=== PATIENT | female | born 1970 | race Caucasian/White ===

== ENCOUNTER → 2019-05-08 | Outpatient (CLI) | payer MEDICAID, SELFPAY ==
[2019-05-08 09:42] VITALS: BMI 32.9
--- NOTE | 2019-05-08 09:59 | RAD_ITS ---
STUDY: X-RAY - LEFT KNEE REASON FOR EXAM: Female, 49 years old. Knee pain TECHNIQUE: 4 view(s) of the knee. COMPARISON: None. FINDINGS: Normal visualized distal femur. Normal visualized proximal tibia and fibula. Normal proximal tibiofibular articulation. Normal medial femorotibial compartment. Normal lateral femorotibial compartment. Normal patellofemoral articulation. The soft tissue structures are unremarkable. RAD/Knee 4 or More Views IMPRESSION: Normal x-ray examination of the knee. Electronically Signed: Maco Mccloud MD at 15:37 EDT Tel , Service support ,
--- NOTE | 2019-05-08 09:59 | RAD_ITS ---
STUDY: X-RAY - RIGHT KNEE REASON FOR EXAM: Female, 49 years old. TECHNIQUE: 4 view(s) of the knee. COMPARISON: None. FINDINGS: [Studies of the right knee shows no evidence of fracture, dislocation, or bony destruction. There is narrowing of the patellofemoral articulation on the right particularly involving the lateral right knee cap consistent with severe degenerative arthritis RAD/Knee 4 or More Views IMPRESSION: [Severe degenerative arthritis of the right knee Electronically Signed: Ruben Salvador, at 14:38 EDT Tel , Service support ,
== END | disposition home or self-care (01) ==
LOC: HPRAD 09:58
PROVIDERS: Referring Provider Orthopaedic Surgery; Visit Provider Orthopaedic Surgery
DX: M25.561 Pain in right knee (principal); M25.562 Pain in left knee
CPT/HCPCS: 73564

== ENCOUNTER 2019-08-14 16:33 | Emergency (ER) | payer MEDICAID, SELFPAY ==
[2019-05-08 09:42] VITALS: BMI 32.9
[2019-08-14 16:35] VITALS: BP 159/101; PULSE 80; RESP 16; TEMP 36.5; O2SAT 99; BMI 32.7
--- NOTE | 2019-08-14 17:33 | ED.DCSUM_ITS ---
History of Present Illness Chief Complaint: Abd Pain Informant: Patient Onset: Weeks - 2 Context: Gradual Onset Timing: Continuous Narrative: Patient is a 49-year-old female presenting for continued abdominal pain. Debo ent states she has had abdominal pain in her left upper quadrant as well as her left mid back for the past 2 weeks. She states it is constant. She states it is sharp and feels like she is being stabbed or punched. Patient notes that about 2 weeks ago she had a colonoscopy where she was diagnosed with diverticulitis. She was started on antibiotics at that time. A week ago she went to [facility] for continued pain. She had a CT and was diagnosed with colitis. She started on Augmentin which she finished today. She is also given Belding for pain control. Patient states the pain is persisted. In the interim she also developed shingles in the same area. Patient was put on an antiviral for this. Patient finished all her medications today so she went back to the ER at [facility]. She was told there was nothing more to do for her so patient left. Patient did not have any further lab work evaluation. Patient then came to our emergency room for further evaluation. Patient has associated sweats but no fever. She has chronic diarrhea which is unchanged. She denies any black or blood in her stool. She does have associated nausea but she thinks it is secondary to her pain. She denies any vomiting. Patient's been taking Tylenol as well at home. 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 She also has a history of diabetes and hypertension. Patient was incidentally found to have a nonobstructing 8 mm stone in her right kidney. Past Medical History - Allergies and Home Meds Allergies/Adverse Reactions: Allergies No Known Allergies Allergy (Verified 08/14/19 16:34) Primary Care Physician: Opal Rader MD [Primary Care Provider] - Past Medical History: - - Hypertension, history of DVT in arm, diabetes mellitus Surgical History: no surgical history Smoking Status: Current every day smoker Review of Systems General: Denies: Chills, Fever, Sweats Eyes: Denies: Visual changes - bilaterally, Diplopia ENT: Denies: Rhinorrhea, Sore throat Cardiovascular: Denies: Chest pain, Palpitations Respiratory: Denies: Dyspnea, Cough, Dyspnea on exertion Gastrointestinal: Reports: Abdominal pain. Denies: Nausea, Vomiting, Diarrhea, Melena, Hematochezia Genitourinary: Denies: Dysuria, Hematuria, Frequency Musculoskeletal: Reports: Back pain. Denies: Extremity Pain Skin: Reports: Rash - left upper abdoemn and back . Denies: Wounds Neurological: Denies: Headache, Weakness, Numbness Physical Exam Vital Signs/Narrative: Vital Signs Temp Pulse Resp BP Pulse Ox 08/14/19 16:35 97.7 F L 80 16 159/101 H 99 Inital Vital Signs reviewed: Yes General: Well nourished, Well developed, No Acute Distress Head: Normocephalic, Atraumatic Eyes: Perrl, EOMI ENT: Moist mucous membranes, No rhinorrhea Neck: Supple, Nontender Cardiovascular: Regular rate, Regular rhythm, No murmurs Respiratory: No distress, CTA bilaterally, Chest nontender Abdomen: Soft, Nontender, Nondistended, Normal bowel sounds. Negative for: Guarding, Rebound tenderness, Mass Back: Nontender, Normal Inspection. Negative for: CVA tenderness, Spinal tenderness Extremities: Nontender, No edema Skin: Normal color, - - Scattered vesicular rash wrapping around the patient's left upper abdomen and back at approximately the level of T10, this coincides with patient's pain is Neurological: Alert, Oriented x3, Cranial nerves II-XII grossly intact, Normal Strength, Normal Sensation Psychological: Normal affect, Normal Mood Diagnostic/Tx/Re-eval Laboratory Data 08/14/19 08/14/19 08/14/19 17:00 17:00 18:05 WBC 6.7 RBC 4.69 Hgb 13.9 Hct 39.8 MCV 84.9 MCH 29.6 MCHC 34.9 RDW Std Deviation 40.6 RDW Coeff of Patito 13.3 Plt Count 208 MPV 10.5 Immature Gran % (Auto) 0.400 Neut % (Auto) 55.5 Lymph % (Auto) 36.7 [place] % (Auto) 5.5 Eos % (Auto) 1.3 Baso % (Auto) 0.6 Absolute Neuts (auto) 3.7 Absolute Lymphs (auto) 2.45 Nucleated RBC % 0 Sodium 138 Potassium 3.5 Chloride 107 Carbon Dioxide 25.0 Anion Gap 6 BUN 11 Creatinine 0.80 Estim Creat Clear Calc 65.80 Est GFR (MDRD) Af Amer 97 Est GFR (MDRD) Non-Af 80 BUN/Creatinine Ratio 13.7 Glucose 185 H Calcium 9.0 Total Bilirubin 0.20 AST 9 L ALT 19 Alkaline Phosphatase 64 Total Protein 7.8 Albumin 3.8 Globulin 4.0 Albumin/Globulin Ratio 1.0 Lipase 155 Urine Color Yellow Urine Clarity Sl. Cloudy Urine pH 6.0 Ur Specific [place] 1.020 Urine Protein Negative Urine Glucose (UA) Normal Urine Ketones 5 H Urine Occult Blood 10 H Urine Nitrite Negative Urine Bilirubin Negative Urine Urobilinogen 1 H Ur Leukocyte Esterase 25 H Urine RBC 0-5 SEEN Urine WBC 0-5 SEEN Ur Squamous Epith Cells 0-5 SEEN Urine Bacteria 0 SEEN Urine Mucus 0 SEEN - Medical Decision Making Patient is evaluated for 2 weeks of constant abdominal and back pain. Patient had a CT of her abdomen and pelvis 10 days ago which is reviewed which showed fatty liver, nonobstructing right renal calculus and underfilling versus inflammatory change of the sigmoid colon as well as nonspecific mesenteric adenitis. Patient has completed a course of antibiotics for the questionable colitis. Patient is overall well-appearing. She has been eating and drinking. Her vital signs are normal. Her pain is likely from her shingles and possible postherpetic neuralgia. Patient is given morphine and Lidoderm as well as IV fluids while in the emergency room. On reevaluation she is feeling much better. Patient cannot have NSAIDs because she is on anticoagulation. She is told to use [id number] Lidoderm patches and is also started on gabapentin for pain. She will continue taking her antivirals. At this time I do not think re peat abdominal imaging is indicated given her physical exam, laboratory findings and vital signs. She is agreeable with this. Patient is counseled on signs and symptoms requiring return to the emergency room. Patient verbalizes agreement and understand this plan. Patient discharged home in stable and improved condition. ED Disposition - Plan for ED Patient: Disposition: Home or Assisted Living Diagnosis: Shingles outbreak, Abdominal pain Instructions: Shingles (Herpes Zoster) Prescriptions: Gabapentin [Neurontin] 100 mg PO TIDCM 7 Days #21 cap Transmission Status: Received by [id number] Referrals: Opal Rader MD [Primary Care Provider] - Additional Instructions: Your lab work was normal today. I suspect your pain is actually from your shingles. Use [id number] 4% Lidoderm patches topically. Continue take Tylenol. You have also been prescribed a nerve pill to help with your pain. Please follow-up with your primary care doctor or the doctor covering for her later this week for reevaluation.
[2019-08-14 17:51] LABS: Absolute Lymphocyte Count 2.45 X10^3/uL (0.83-4.51); Absolute Neutrophil Count 3.7 X10^3/uL (2.0-7.7); Basophil# 0.04 X10^3/uL; Basophil% 0.6 % (0-1); Eosinophil# 0.09 X10^3/uL; Eosinophils% 1.3 % (0-5); Hematocrit 39.8 % (37-47); Hemoglobin 13.9 g/dL (12.0-15.0); Lymphocyte # 2.45 X10^3/ul (4.0); Lymphocyte % 36.7 % (19-41); Mean Corp Hgb Conc 34.9 g/dL (32-36); Mean Corpuscular Hgb 29.6 pg (27.0-32.0); Mean Corpuscular Volume 84.9 fL (81-99); Mean Platelet Vol. 10.5 fl (6.2-12.0); Monocyte# 0.37 X10^3/uL; Monocyte% 5.5 % (0-10); NRBC Flagged by Analyzer 0 % (0-5); Neutrophil # 3.69 X10^3/uL (2.7-7.7); Neutrophil % 55.5 % (47-70); Platelet Count 208 K/mm3 (150-450); RBC Distribution Width CV 13.3 % (11.6-14.6); RBC Distribution Width SD 40.6 fl (35.1-43.9); Red Blood Count 4.69 M/mm3 (4.2-5.4); White Blood Count 6.7 K/mm3 (4.4-11.0)
[2019-08-14 18:03] LABS: AST(SGOT) 9 U/L (15-37); Alanine Aminotransfer ALT/SGPT 19 U/L (13-56); Albumin, Serum 3.8 g/dL (3.2-5.0); Alkaline Phosphatase 64 U/L (45-117); Anion Gap 6 (5-15); BUN 11 mg/dL (7-18); BUN/Creat Ratio 13.7 RATIO (10-20); Chloride 107 mmol/L (98-107); EST Glomerular Filtration Rate 80 mL/min (>60); Est Glom Filt Rate - Afr Amer 97 mL/min (>60); Glucose 185 mg/dL (74-106); Lipase 155 U/L (73-393); Potassium 3.5 mmol/L (3.5-5.1); Protein, Total 7.8 g/dL (6.4-8.2); Sodium Level 138 mmol/L (136-145)
[2019-08-14] MEDS: Morphine 4 MG/ML Syringe IV (18:14)
[2019-08-14] MEDS: Ondansetron 4 MG/2 ML Vial IV (18:14)
[2019-08-14] MEDS: 0.9% Normal Saline 1,000 ML 1000 ML IV (18:14)
[2019-08-14 18:19] LABS: Bacteria 0 SEEN /hpf (None Seen); Mucous, Urine 0 SEEN /hpf (<or=2+)
[2019-08-14] MEDS: Lidocaine 5% Patch 1 PATCH TOPICAL (18:23)
[2019-08-14 18:25] LABS: Color, Urine Yellow (Yellow); Glucose, Dipstick Normal (Normal); Ketone-Dipstick 5 mg/dl (Negative); Leukocyte Esterase-Dipstick 25 /ul (Negative); Nitrite-Dipstick Negative (Negative); Occult Blood-Urine 10 /ul (Negative); Protein-Dipstick Negative (Negative); Urine Bilirubin Dipstick Negative (Negative); Urine Clarity Sl. Cloudy (Clear); Urine Urobilinogen 1 mg/dl (Normal)
[2019-08-14 18:45] LABS: Red Blood Cells-Urine 0-5 SEEN /hpf (0-5); Squamous Epithelial Cells - UA 0-5 SEEN /hpf (5-10); White Blood Cells 0-5 SEEN /hpf (0-5)
[2019-08-14 19:24] VITALS: RESP 18
[2019-08-14 20:46] VITALS: BP 156/90; PULSE 67; RESP 16; O2SAT 98
--- NOTE | 2019-08-14 20:48 | ED.RN ---
REVIEWED D/V INSTRUCTIONS, FOLLOW UP CARE, PRESCRIPTION, AND S/S THAT WOULD WARRANT A RETURN TO THE ED WITH PT. PT VERBALIZED AN UNDERSTANDING AND DENIES FURTHER QUESTIONS FOR THIS RN. PT SKIN P/W/D, RESP EVEN AND UNLABORED, PT A&O X 3, NO DISTRESS NOTED. PT AMBULATED OUT OF ED, GAIT STEADY.
== END 2019-08-14 20:49 | disposition home or self-care (01) ==
PROVIDERS: Emergency Provider Emergency Medicine; Family Provider Student in an Organized Health Care Education/Training Program; PCP Student in an Organized Health Care Education/Training Program
DX: B02.9 Zoster without complications (principal); R10.12 Left upper quadrant pain; E11.9 Type 2 diabetes mellitus without complications; I10 Essential (primary) hypertension; F17.200 Nicotine dependence, unspecified, uncomplicated; Z79.01 Long term (current) use of anticoagulants; Z79.84 Long term (current) use of oral hypoglycemic drugs; Z79.899 Other long term (current) drug therapy; Z86.718 Personal history of other venous thrombosis and embolism
CPT/HCPCS: 80053; 81001; 83690; 85025; 96361; 96374; 96375; 99283; J7030; A4216; J2405

== ENCOUNTER → 2025-01-23 | Outpatient (CLI) | payer OTHER, SELFPAY | END | disposition home or self-care (01) | PROVIDERS: PCP Student in an Organized Health Care Education/Training Program | DX: H92.11 Otorrhea, right ear (principal) | CPT/HCPCS: 87070; 87075; 87077; 87186; 87205 ==